=== PATIENT | female | born 1985 | race Asian ===

== ENCOUNTER 2021-06-26 14:47 | Emergency (ER) | payer OTHER ==
[~2021-06-26] VITALS: Ht 167.6 cm; Wt 86.2 kg
[2021-06-26 14:55] VITALS: BP_SYST 114
--- NOTE | 2021-06-26 16:50 | NUR ---
Patient to ER bed H1 to gown for evaluation. Side rails up.
--- NOTE | 2021-06-26 16:52 | NUR ---
Pt brought by self, A&Ox4, pt presents to ER iwht headache x 2 days , skin pink and warm, cap refill <3, VSS, respirations even and unlabored, will cont to monitor.
--- NOTE | 2021-06-26 17:13 | NUR ---
Dr Fried evaluating patient at bedside
[2021-06-26] MEDS ORDERED: KETOROLAC TROMETHAMINE 60 MG/2 ML VIAL IM ONE (17:30)
[2021-06-26] MEDS ORDERED: CYCL-10 PO (17:31)
[2021-06-26] MEDS ORDERED: IBUP-1969 PO (17:31)
[2021-06-26 18:53] VITALS: BP_SYST 114
--- NOTE | 2021-06-26 18:57 | NUR ---
Patient given written and verbal discharge instructions and verbalizes understanding. ER MD discussed with patient the results and treatment provided. Patient in stable condition. ID arm band removed. Rx of Flexeril and Ibuprofen given. Patient educated on pain management and to follow up with PMD. Pain Scale 2/10 tolerable for patient . Opportunity for questions provided and answered. Medication side effect fact sheet provided.
== END 2021-06-26 18:53 | disposition home or self-care (01) ==
LOC: SED 14:47
DX: G44.209 Tension-type headache, unspecified, not intractable (principal); F41.9 Anxiety disorder, unspecified
CPT/HCPCS: 96372; 99283; J1885